=== PATIENT | male | born 1955 | race African-American/Black ===

== ENCOUNTER 2016-07-08 05:59 | Observation (INO) | payer MEDICAID, OTHER ==
[~2016-07-08] VITALS: Ht 180.3 cm; Wt 77.7 kg
[2016-07-08] MEDS ORDERED: DILUENT IV ONE (06:45)
[2016-07-08] MEDS ORDERED: MORPHINE 2 MG/ML 1ML SYRINGE IV ONE (06:45)
[2016-07-08] MEDS ORDERED: PENICILLIN G POTASSIUM IV 5 MU in D5W MINI-BAG PLUS 100 ML IV ONE (06:45)
[2016-07-08] MEDS ORDERED: METRONIDAZOLE IV ONE (06:45)
[2016-07-08] MEDS ORDERED: NS 500 ML IV ONE (06:45)
[2016-07-08] MEDS ORDERED: ISOVUE-370 76% 100ML VIAL (Q9967) As Ordered ONE (06:49)
[2016-07-08 06:54] LABS: BASO % 0.2 % (0.0-1.0); EOS # 0.1 K/mm3 (0.0-0.50); EOS % 1.1 % (0.0-3.0); LARGE UNSTAINED CELL # 0.2 K/mm3 (0.0-0.4); LARGE UNSTAINED CELL % 1.7 % (0.0-4.0); LYMPH # 1.1 K/mm3 (1.5-4.5); LYMPH % 8.3 % (24.0-44.0); MEAN CORPUSCULAR HEMOGLOBIN 30.1 pg (27.0-33.0); MEAN CORPUSCULAR VOLUME 91.2 fl (80.0-96.0); MONO # 0.8 K/mm3 (0.0-0.8); MONO % 6.6 % (0.0-5.0); NEUTROPHILS # 10.4 K/mm3 (1.8-7.7); NEUTROPHILS % 82.1 % (36.0-66.0); PLATELET COUNT, AUTOMATED 271 k/mm3 (150-450); RED CELL DISTRIBUTION WIDTH 13.7 % (11.5-14.5); WHITE BLOOD COUNT 12.6 K/mm3 (4.0-10.0)
[2016-07-08 07:09] LABS: ANION GAP 9 MEQ/L (8-16); BLOOD UREA NITROGEN 18 MG/DL (7-18); CALCIUM LEVEL 8.8 MG/DL (8.5-10.1); CARBON DIOXIDE LEVEL 27 MEQ/L (21-32); CHLORIDE LEVEL 102 MEQ/L (98-107); CREATININE FOR GFR 1.19 MG/DL (0.70-1.30); GLOMERULAR FILTRATION RATE > 60.0 (>56); GLUCOSE, FASTING 119 MG/DL (70-105); POTASSIUM SERUM 4.3 MEQ/L (3.5-5.1); SODIUM LEVEL 138 MEQ/L (136-145)
[2016-07-08] MEDS ORDERED: dexameTHASONE 20 MG/5 ML VIAL (J1100) IV ONE (08:00)
--- NOTE | 2016-07-08 08:29 | REP ---
Clinical: Parapharyngeal infection. Technique: Axial contrast enhanced images from the skull base to the thoracic inlet with coronal and sagittal re-formations is seen 100 ml Isovue 370 intravenous contrast material. Comparison: None. Findings: Extensive swelling and inflammatory changes are appreciated involving the nasopharyngeal through parapharyngeal space bilaterally. There appears to be significant inflammatory swelling which obliterates the nasopharyngeal passage to the oropharynx. Small bilateral phlegmon/early forming abscesses are identified on the right side (images 29 - 32) and on the left side (images 29 - 36). Associated adenopathy is appreciated (left greater than right) with lymph nodes measuring up to roughly 2.3 cm. The osseous structures are intact and normal. Impression: Extensive infectious/inflammatory process involving the nasopharyngeal through parapharyngeal space bilaterally including adenoid and tonsillar tissues with forming small abscesses and adenopathy. Swelling occludes the nasopharyngeal passage to the oropharynx by CT evaluation. Signed by Elliott Marion MD 07/08/2016 08:19 A
[2016-07-08] MEDS: metroNIDAZOLE 500 MG in APPROPRIATE DILUENT 1 EA IV SCH ×2 (08:35→09:00)
[2016-07-08] MEDS ORDERED: NS 1,000 ML IV SCH (10:15)
[2016-07-08] MEDS ORDERED: ONDANSETRON 4MG/2ML VIAL (J2405) IV PRN (11:45)
[2016-07-08] MEDS ORDERED: ACETAMINOPHEN 650 MG SUPP PR PRN (11:45)
[2016-07-08 13:00] VITALS: BP 149/65
[2016-07-08] MEDS: NS 1,000 ML IV SCH ×2 (13:09→21:39)
[2016-07-08] MEDS: HYDROCORTISONE INJection 1,000 MG in NS 50 ML IV SCH ×2 (13:44→21:39)
[2016-07-08] MEDS: CLINDAMYCIN 900 MG in APPROPRIATE DILUENT 1 EA IV SCH ×2 (14:36→20:05)
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
[2016-07-08 16:00] VITALS: BP 119/79
[2016-07-08 20:00] VITALS: BP 122/77
[2016-07-08 22:00] VITALS: BP 136/83
[2016-07-09] MEDS: CLINDAMYCIN 900 MG in APPROPRIATE DILUENT 1 EA IV SCH ×3 (05:07→22:52)
[2016-07-09 06:00] VITALS: BP 113/72
[2016-07-09 06:23] LABS: MEAN CORPUSCULAR HEMOGLOBIN 28.8 pg (27.0-33.0); MEAN CORPUSCULAR VOLUME 90.1 fl (80.0-96.0); RED CELL DISTRIBUTION WIDTH 13.9 % (11.5-14.5); WHITE BLOOD COUNT 16.8 K/mm3 (4.0-10.0)
[2016-07-09] MEDS: HYDROCORTISONE INJection 1,000 MG in NS 50 ML IV SCH ×3 (06:32→23:54)
[2016-07-09 06:50] LABS: ANION GAP 9 MEQ/L (8-16); BLOOD UREA NITROGEN 21 MG/DL (7-18); CALCIUM LEVEL 8.2 MG/DL (8.5-10.1); CARBON DIOXIDE LEVEL 26 MEQ/L (21-32); CHLORIDE LEVEL 107 MEQ/L (98-107); CREATININE FOR GFR 0.93 MG/DL (0.70-1.30); GLOMERULAR FILTRATION RATE > 60.0 (>56); GLUCOSE, FASTING 123 MG/DL (70-105); POTASSIUM SERUM 4.5 MEQ/L (3.5-5.1); SODIUM LEVEL 142 MEQ/L (136-145)
[2016-07-09] MEDS: ENOXAPARIN 40 MG/0.4 ML SYRINGE (J1650) SC SCH (10:38)
--- NOTE | 2016-07-09 11:23 | ER ---
DATE OF PROCEDURE: 07/08/2016 The patient is a 58-year-old male who presents with a history of sore throat, which has been going on since Sunday, which is four days. It has been progressively getting worse. He has a bit of problems with his breathing. He has not been able to swallow since Sunday. He has not had any liquids or solids. He has had some problems with sore throats in the past. Otherwise the patient is healthy. Examination shows the patient is sitting up and his mouth is open. Examination of the oral cavity shows that there is edema of the palate. He has 3-4+ tonsillar hypertrophy. There is edema of the uvula as well. His airway seems to be adequate, i.e, the oral airway. There is no swelling of the tongue. I inserted a flexible fiberoptic nasal pharyngoscope and his hypopharynx, oropharynx, and larynx are otherwise normal. He has a bit of swelling in his neck. IMPRESSION: The patient appears to have an infection in the soft palate tonsil area. There are some lytic areas on the CT scan, but the main swelling is in the soft palate and the tonsil area. The patient is positive for Streptococcus. The patient has a elevated white count. PLAN: The patient should be monitored in ICU and treated with IV antibiotics and steroids. If his swelling gets worse, he may need control of his airway.
[2016-07-09 14:00] VITALS: BP 126/78
--- NOTE | 2016-07-09 15:23 | IPNPDOC ---
Subjective Date Seen The patient was seen on 07/09/16. Subjective Chief Complaint/HPI The patient is a 60-year-old male admitted with a reason for visit of Retropharyngeal And Parapharyngeal Abscess. General: Denies: Chills, Night Sweats Constitutional: Denies: Chills, Fever Eyes: Denies: Pain, Vision change ENT: Reports: Sore Throat, Other Symptoms (Tonsilar, Soft Palate swelling), Denies: Head Aches, Ear Pain Skin: Denies: Rash, Lesions Pulmonary: Denies: Dyspnea, Cough Cardiovascular: Denies: Chest Pain, Palpitations Gastrointestinal: Denies: Nausea, Vomiting Genitourinary: Denies: Dysuria, Frequency Hematologic: Denies: Bruising, Bleeding Excessively Musculoskeletal: Denies: Neck Pain, Back Pain Objective Physical Examination General Exam: Positive: Alert, Cooperative, No Acute Distress ENT Exam: Positive: Atraumatic, Other ENT (patient noted to have tonsilar and soft palate edema. Tongue midline, with no swelling noted. Airway patent) Neck Exam: Negative: JVD Chest Exam: Positive: Clear to auscultation, Normal air movement, Other ( patient breathing comfortably, with no use of accessory muscles or any distress noted. No stridor noted.), Negative: Rales, Rhonchi, Wheezing, Diminished Heart Exam: Positive: Rate Normal, Normal S1, Normal S2 Abdomen Exam: Positive: Soft, Negative: Tenderness Extremity Exam: Negative: Tenderness, Swelling Psych Exam: Positive: Oriented x 3 Assessment /Plan Plan/VTE VTE Prophylaxis Ordered?: Yes Plan Soft Palate and Tonsilar Inflammation/Infection likely 2/[address] Neck with Contrast notable for extensive infectious/inflammatory process involving the nasopharyngeal through parapharyngeal space bilaterally including adenoid and tonsillar tissues with forming small abscesses and adenopathy. Patient seen and evaluated by Dr. Kurtz--> no surgical indication at this time, recommended IV steroids and IV antibiotics with observation of airway in the ICU Strep screen + Cont on Clindamycin Diet advanced to Soft Diet Will continue to monitor the patient and follow up with ENT recommendations DVT prophylaxis Lovenox subcutaneously VS, I&O, 24H, Fishbone Vital Signs/I&O Vital Signs Date Time Temp Pulse Resp B/P (MAP) Pulse Ox O2 Delivery O2 Flow Rate FiO2 07/09/16 14:30 99 Room Air 07/09/16 06:00 98.5 71 16 113/72 (86) I&O- Last 24 Hours up to 6 AM 07/09/16 06:00 Intake Total 2871 ml Output Total 600 ml Balance 2271 ml Laboratory Data 24H LABS Laboratory Tests 2 07/09/16 05:37: Anion Gap 9, Glomerular Filtration Rate > 60.0, Blood Urea Nitrogen 21H, Creatinine 0.93, Sodium Level 142, Potassium Level 4.5, Chloride Level 107, Carbon Dioxide Level 26, Calcium Level 8.2L CBC/BMP Laboratory Tests 07/09/16 05:37 Red Blood Count 4.67, Mean Corpuscular Volume 90.1, Mean Corpuscular Hemoglobin 28.8, Mean Corpuscular Hemoglobin Concent 32.0, Red Cell Distribution Width 13.9 , Calcium Level 8.2 L Microbiology Microbiology 07/08/16 Blood Culture - Preliminary, Resulted No growth after 24 hours . All specim... 07/08/16 Group A Streptococcus Screen (OLAMIDE) - Final, Complete JON BOND MD July 09, 2016 15:23
[2016-07-09 22:00] VITALS: BP 142/85
[2016-07-10 06:00] VITALS: BP 138/84
[2016-07-10 06:46] LABS: MEAN CORPUSCULAR HEMOGLOBIN 29.2 pg (27.0-33.0); MEAN CORPUSCULAR HGB CONC 32.2 g/dl (32.0-36.5); MEAN CORPUSCULAR VOLUME 90.7 fl (80.0-96.0); RED CELL DISTRIBUTION WIDTH 13.8 % (11.5-14.5); WHITE BLOOD COUNT 21.2 K/mm3 (4.0-10.0)
[2016-07-10] MEDS: HYDROCORTISONE INJection 1,000 MG in NS 50 ML IV SCH (06:46)
[2016-07-10 07:08] LABS: ANION GAP 8 MEQ/L (8-16); BLOOD UREA NITROGEN 23 MG/DL (7-18); CALCIUM LEVEL 8.9 MG/DL (8.5-10.1); CARBON DIOXIDE LEVEL 26 MEQ/L (21-32); CHLORIDE LEVEL 107 MEQ/L (98-107); CREATININE FOR GFR 1.03 MG/DL (0.70-1.30); GLOMERULAR FILTRATION RATE > 60.0 (>56); GLUCOSE, FASTING 136 MG/DL (70-105); POTASSIUM SERUM 4.8 MEQ/L (3.5-5.1); SODIUM LEVEL 141 MEQ/L (136-145)
[2016-07-10] MEDS: CLINDAMYCIN 900 MG in APPROPRIATE DILUENT 1 EA IV SCH (07:29)
[2016-07-10] MEDS: ENOXAPARIN 40 MG/0.4 ML SYRINGE (J1650) SC SCH (09:04)
[2016-07-10] MEDS ORDERED: CLIN900I5 PO ×2 (10:11→10:13)
[2016-07-10] MEDS ORDERED: CLIN1CAP5 PO (10:47)
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
== END 2016-07-10 11:20 | disposition home or self-care (01) ==
LOC: M ED 07:16 → M ED INP 11:42 → M ICU 13:00 → M MS5PR 20:45
PROVIDERS: ADMIT Internal Medicine; ATTEND Internal Medicine
DX: J02.0 Streptococcal pharyngitis (principal); J35.3 Hypertrophy of tonsils with hypertrophy of adenoids; R22.0 Localized swelling, mass and lump, head; D72.829 Elevated white blood cell count, unspecified
CPT/HCPCS: 31575; 36415; 70491; 80048; 83036; 85025; 85027; 87040; 87880; 96361; 96365; 96366; 96367; 96372; 96375; 96376; 99285; J1100; J1650; J1720; Q9967

== ENCOUNTER 2022-09-23 15:59 | Emergency (ER) | payer MEDICARE, MEDICAID ==
[~2022-09-23] VITALS: Ht 180.3 cm; Wt 72.0 kg
[~2022-09-23 15:59] MED LIST: CLIN150C17 PO; CLIN900I7 PO
[2022-09-23 16:01] VITALS: BP 150/90; TEMP 97.9; O2SAT 99
[2022-09-23] MEDS ORDERED: predniSONE 20 MG TAB PO ONE (17:25)
[2022-09-23] MEDS ORDERED: KETOROLAC 60MG 2ML VIAL IM ONE (17:25)
[2022-09-23] MEDS ORDERED: methocarbamoL 500 MG TAB PO ONE (17:25)
[2022-09-23] MEDS ORDERED: PRED20TA PO (18:37)
[2022-09-23] MEDS ORDERED: METH-1164 PO (18:37)
[2022-09-23] MEDS ORDERED: IBUP-1022 PO (18:37)
== END 2022-09-23 18:46 | disposition home or self-care (01) ==
LOC: M ED 15:59
DX: M54.50 Low back pain, unspecified (principal); K21.9 Gastro-esophageal reflux disease without esophagitis
CPT/HCPCS: 72110; 81001; 96372; 99282; J1885; J7512

== ENCOUNTER 2022-10-08 17:39 | Emergency (ER) | payer MEDICARE, MEDICAID ==
[~2022-10-08] VITALS: Ht 180.3 cm; Wt 67.8 kg
[~2022-10-08 17:39] MED LIST changes: +IBUP-1022 PO; +METH-1164 PO; +PRED20TA PO
[2022-10-08] MEDS ORDERED: PERCOCET 5MG/325MG TAB PO ONE (20:20)
[2022-10-09 00:06] LABS: ALBUMIN 2.6 G/DL (3.2-5.2); ALKALINE PHOSPHATASE 225 U/L (46-116); ALT/SGPT 27 U/L (7.0-40); AST/SGOT 24 U/L (<34); BILIRUBIN,TOTAL 0.6 MG/DL (0.3-1.2); BLOOD UREA NITROGEN 17 MG/DL (9-23); CALCIUM LEVEL 8.7 MG/DL (8.3-10.6); CARBON DIOXIDE LEVEL 23 MMOL/L (20-31); CHLORIDE LEVEL 108 MMOL/L (98-107); CREATININE FOR GFR 0.82 MG/DL (0.70-1.30); GLOMERULAR FILTRATION RATE > 60.0 (>49); GLUCOSE, FASTING 95 MG/DL (74-106); POTASSIUM SERUM 4.1 MMOL/L (3.5-5.1); SODIUM LEVEL 141 MMOL/L (136-145); TOTAL PROTEIN 6.2 G/DL (5.7-8.2)
[2022-10-09 00:11] LABS: BASO # 0.1 10^3/uL (0.0-0.2); BASO % 0.5 % (0.0-1.0); EOS # 0.5 10^3/uL (0.0-0.5); EOS % 3.4 % (0.0-3.0); HEMOGLOBIN 12.7 g/dl (13.5-17.5); LYMPH # 1.6 10^3/uL (1.5-5.0); LYMPH % 11.8 % (24.0-44.0); MEAN CORPUSCULAR HEMOGLOBIN 27.9 pg (27.0-33.0); MEAN CORPUSCULAR HGB CONC 32.6 g/dl (32.0-36.5); MEAN CORPUSCULAR VOLUME 85.5 fl (80.0-96.0); MONO # 1.2 10^3/uL (0.0-0.8); MONO % 8.6 % (2.0-8.0); NEUTROPHILS # 10.4 10^3/uL (1.5-8.5); PLATELET COUNT, AUTOMATED 372 10^3/uL (150-450); RED BLOOD COUNT 4.56 10^6/uL (4.30-6.10); WHITE BLOOD COUNT 13.9 10^3/uL (4.0-10.0)
[2022-10-09 00:24] LABS: RSV AMPLIFICATION NEGATIVE (NEGATIVE)
[2022-10-09] MEDS ORDERED: ISOVUE-370 76% 100ML VIAL As Ordered ONE (00:27)
[2022-10-09] MEDS ORDERED: KETOROLAC 30 MG/ML 1ML VIAL IV ONE (02:40)
[2022-10-09] MEDS ORDERED: ONDANSETRON 4MG 2ML VIAL IV ONE (02:40)
[2022-10-09] MEDS: MORPHINE 4 MG/ML 1ML VIAL IV PRN ×2 (02:49→07:39)
[2022-10-09] MEDS ORDERED: MORPHINE 4 MG/ML 1ML VIAL IV ONE (10:30)
[2022-10-09 10:37] VITALS: BP 138/90; TEMP 96.6; O2SAT 97
== END 2022-10-09 10:37 | disposition short-term general hospital (02) ==
LOC: M ED 17:39
DX: R91.8 Other nonspecific abnormal finding of lung field (principal); M84.58XA Pathological fracture in neoplastic disease, other specified site, initial encounter for fracture; S22.080A Wedge compression fracture of T11-T12 vertebra, initial encounter for closed fracture; R93.2 Abnormal findings on diagnostic imaging of liver and biliary tract; R93.421 Abnormal radiologic findings on diagnostic imaging of right kidney; M48.04 Spinal stenosis, thoracic region; M48.061 Spinal stenosis, lumbar region without neurogenic claudication; M48.07 Spinal stenosis, lumbosacral region; M54.9 Dorsalgia, unspecified; K21.9 Gastro-esophageal reflux disease without esophagitis; F17.200 Nicotine dependence, unspecified, uncomplicated
CPT/HCPCS: 71260; 72148; 74177; 80053; 81001; 85025; 87631; 96374; 96375; 96376; 99285; J1885; J2405; Q9967